=== PATIENT | female | born 1960 | race Caucasian/White ===

== ENCOUNTER 2016-08-01 15:55 | Emergency (ER) | payer MEDICARE, OTHER ==
[2016-08-01 16:19] LABS: BASO # 0.1 10_X3_uL (0.0-0.1); EOS # 0.2 10_X3_uL (0.0-0.4); EOS % 2.5 % (0.7-5.8); GRAN % 64.9 % (34.0-71.1); HEMOGLOBIN 13.6 g/dL (11.2-15.7); LYMPH # 1.4 10_X3_uL (1.2-3.7); LYMPH % 22.4 % (19.3-51.7); MEAN CORPUSCULAR HEMOGLOBIN 31.7 pg (27.0-33.0); MEAN CORPUSCULAR VOLUME 93.2 fL (79-95); MEAN PLATELET VOLUME 9.7 fl (7.5-11.5); MONO # 0.6 10_X3_uL (0.2-0.9); MONO % 9.2 % (4.7-12.5); PLATELET COUNT 235 x10_3/uL (182-369); RED BLOOD COUNT 4.29 x10_6/uL (3.9-5.2); RED CELL DISTRIBUTION WIDTH 11.9 % (11.7-14.4); WHITE BLOOD COUNT 6.1 x10_3/uL (4.0-10.0)
[2016-08-01 16:32] LABS: ALBUMIN 3.6 gm/dL (3.4-5.0); ALKALINE PHOSPHATASE 98 U/L (50-136); ALT/SGPT 55 U/L (3.5-33.9); AST/SGOT 93 U/L (7.04-26.96); BILIRUBIN,TOTAL 0.41 mg/dL (0.0-1.0); BLOOD UREA NITROGEN 16 mg/dL (7-18); CALCIUM 9.1 mg/dL (8.7-10.7); CARBON DIOXIDE 15 mmol/L (21-32); CREATININE 0.7 mg/dL (0.6-1.3); GLUCOSE,RANDOM 143 mg/dL (70-99); POTASSIUM 3.2 mmol/L (3.5-5.1); SODIUM 135 mmol/L (136-145); TOTAL PROTEIN 6.2 gm/dL (6.4-8.2)
== END 2016-08-01 18:50 | disposition home or self-care (01) ==
LOC: ER 15:55
PROVIDERS: General Practice
DX: R74.8 Abnormal levels of other serum enzymes (principal); T40.605A Adverse effect of unspecified narcotics, initial encounter; J44.9 Chronic obstructive pulmonary disease, unspecified; I95.9 Hypotension, unspecified; E86.0 Dehydration; R47.81 Slurred speech; R07.81 Pleurodynia; W19.XXXA Unspecified fall, initial encounter; R53.1 Weakness; I10 Essential (primary) hypertension; F41.9 Anxiety disorder, unspecified; G89.29 Other chronic pain; F17.210 Nicotine dependence, cigarettes, uncomplicated; Z79.899 Other long term (current) drug therapy; Z88.8 Allergy status to other drugs, medicaments and biological substances
CPT/HCPCS: 36415; 70450; 71250; 80053; 80307; 85025; 96361; 96374; 96375; 96376; 99070; 99284; 99285-25

== ENCOUNTER 2016-08-07 14:26 | Emergency (ER) | payer MEDICARE | END 2016-08-07 18:53 | disposition home or self-care (01) | LOC: ER 14:26 | DX: M54.5 Low back pain (principal); G89.29 Other chronic pain; I10 Essential (primary) hypertension; Z90.710 Acquired absence of both cervix and uterus; F17.210 Nicotine dependence, cigarettes, uncomplicated; Z79.899 Other long term (current) drug therapy; Z88.8 Allergy status to other drugs, medicaments and biological substances | CPT/HCPCS: 96372; 99282-25; 99283 ==